=== PATIENT | male | born 2000 | race Asian ===

== ENCOUNTER 2022-03-03 18:59 | Emergency (ER) | payer MEDICAID ==
[~2022-03-03] VITALS: Ht 172.7 cm; Wt 94.0 kg
[2022-03-03 19:26] VITALS: BP 138/71
[2022-03-03] MEDS ORDERED: PredniSONE 20 MG TABLET PO ONE (21:15)
[2022-03-03] MEDS ORDERED: DiphenhydrAMINE HCL 25 MG CAPSULE PO ONE (21:15)
[2022-03-03] MEDS ORDERED: PRED-554 PO (21:21)
== END 2022-03-03 21:53 | disposition home or self-care (01) ==
LOC: EMS 18:59
DX: L53.9 Erythematous condition, unspecified (principal)
CPT/HCPCS: 99283; 36415; J7512

== ENCOUNTER 2022-04-01 00:08 | Emergency (ER) | payer MEDICAID ==
[~2022-04-01] VITALS: Ht 167.6 cm; Wt 81.8 kg
[~2022-04-01 00:08] MED LIST: PRED-554 PO
[2022-04-01 00:09] VITALS: BP 121/73
[2022-04-01] MEDS ORDERED: DiphenhydrAMINE HCL 25 MG CAPSULE PO ONE (00:30)
[2022-04-01] MEDS ORDERED: CLOBETASOL 0.05% 15 GM CREAM TP ONE (00:30)
[2022-04-01] MEDS ORDERED: HYDR30CR44 TP (00:32)
[2022-04-01] MEDS ORDERED: CLOB15CR10 TP (00:32)
[2022-04-01] MEDS ORDERED: DIPH50CA37 PO (00:32)
== END 2022-04-01 01:11 | disposition home or self-care (01) ==
LOC: EMS 00:09
DX: L40.4 Guttate psoriasis (principal)
CPT/HCPCS: 87081; 87430; 99283

== ENCOUNTER 2024-07-04 22:31 | Emergency (ER) | payer MEDICAID, OTHER ==
[~2024-07-04] VITALS: Ht 165.1 cm; Wt 86.4 kg
[~2024-07-04 22:31] MED LIST changes: +CLOB15CR10 TP; +DIPH50CA37 PO; +HYDR30CR44 TP
[2024-07-05] MEDS: ONDANSETRON 4 MG TABLET PO ONE
[2024-07-05 00:16] LABS: BASOPHILS % (AUTO) 0.4 % (0.0-2.0); EOSINOPHILS % (AUTO) 2.2 % (1.0-6.0); HEMATOCRIT 45.8 % (41-53); HEMOGLOBIN 15.5 g/dL (13.5-17.5); LYMPHOCYTES # (AUTO) 1.7 K/uL (1.0-4.8); LYMPHOCYTES % (AUTO) 12.4 % (22.0-44.0); MEAN CORPUSCULAR HEMOGLOBIN 29.6 pg (26.0-34.0); MEAN CORPUSCULAR VOLUME 87 fL (80-100); MONOCYTES # (AUTO) 0.7 K/uL (0.1-1.0); MONOCYTES % (AUTO) 5.4 % (2.0-9.0); NEUTROPHILS % (AUTO) 79.6 % (40.0-70.0); PLATELET COUNT (AUTO) 361 K/uL (150-450); RED BLOOD CELL COUNT(AUTO) 5.25 MIL/uL (4.50-5.90); RED CELL DISTRIBUTION WIDTH 12.8 % (11.5-14.5); WHITE BLOOD COUNT (AUTO) 13.8 K/uL (4.5-11.0)
[2024-07-05 00:23] LABS: ANION GAP 9 mmol/L (8-16); CARBON DIOXIDE 28 mmol/L (22-29); CHLORIDE 104 mmol/L (98-107); CREATININE 1.14 mg/dL (0.60-1.30); GLOMERULAR FILTR. RATE CALC > 60 mL/min (>60); GLUCOSE,RANDOM 101 mg/dL (70-110); POTASSIUM 3.9 mmol/L (3.5-5.1); SODIUM SERUM 141 mmol/L (136-145); UREA NITROGEN, BLOOD 18 mg/dL (7-18)
[2024-07-05] MEDS: SODIUM CHLORIDE 0.9% 1,000 ML IV ONE (01:45)
[2024-07-05 04:18] VITALS: BP 119/65; PULSE 68; RESP 16; TEMP 98.3; O2SAT 99
== END 2024-07-05 04:18 | disposition home or self-care (01) ==
LOC: EMS 22:31
DX: K52.9 Noninfective gastroenteritis and colitis, unspecified (principal); R11.2 Nausea with vomiting, unspecified; Z79.52 Long term (current) use of systemic steroids
CPT/HCPCS: 99284; 96360; 80048; 85025; 36415; 74176; J7030; Q0162